=== PATIENT | female | born 1990 | race Caucasian/White ===

== ENCOUNTER → 2018-02-20 | Day surgery (SDC) | payer OTHER ==
[~2018-02-20] VITALS: Ht 165.1 cm; Wt 90.7 kg
[~2018-02-20] MED LIST: VICODIN 5-3001 EACH PO
--- NOTE | 2018-02-20 17:14 | Operative Report ---
Operative/Inv Procedure Report Surgery Date: 02/20/18 Name of Procedure: Open reduction internal fixation of right trimalleolar ankle fracture Pre-Operative Diagnosis: Displaced right trimalleolar ankle fracture Post-Operative Diagnosis: Same Estimated Blood Loss: scant Surgeon/Chemist Steroids: Camille ROTH,Kayden Anesthesia: laryngeal mask airway Implants: Synthes one third tubular 6-hole plate, interfragmentary screw fibula, partially threaded 4.0 cancellus screw medial malleolus Drains: None Specimens: None Microbiology: None Tourniquet: 76 minutes Complications: None Condition: Stable Operative Indication: Patient is a 28-year-old woman who injured her right ankle. She was diagnosed with a displaced trimalleolar ankle fracture. She was splinted and referred to our office. Our evaluation revealed severe swelling at the time of the initial visit and her x-rays revealed displaced trimalleolar ankle fracture which required surgical intervention. However, due to the swelling we needed to monitor swelling and alleviate swelling prior to proceeding with surgery since this would lead to higher risk of soft tissue complications and healing soft tissues. In follow-up, swelling had improved and therefore patient was scheduled for surgery today. Risks benefits and expectations of the surgical management of this type of fracture as well as a nonsurgical management of this fracture were discussed. Patient wished to proceed with the surgical management. Risks benefits and expectations were discussed which included but were not limited to ankle pain, stiffness, need for substance surgery, infection , anesthesia risks, injury to blood vessel or nerve Operative/Procedure Note Note: Patient was brought to the operating room and transferred to the operating table. Once under appropriate anesthesia the right lower extremity was prepped and draped in standard fashion. Preoperative IV antibiotic's were given prophylactically. Patient had moderately severe ecchymosis throughout the lower extremity. Swelling had improved even since the office visit but still had moderate diffuse swelling. No fracture blisters remained except for the very small once she had medially that were not near the anticipated incision site. The leg was elevated exsanguinated and tourniquet was inflated. Standard lateral incision was made centered over the distal fibula fracture site. Through blunt dissection the fracture was isolated. Large fracture hematoma was removed and evacuated. Copious irrigation of this followed. I then identified the fracture fragments no of the lateral malleolus and reduced this fracture. I held this place with a bone clamp. I then placed an interfragmentary screw from anterior to posterior placed as close to 90 to the fracture site as possible by over drilling the near cortex and drilling the far cortex. Measurements were taken and the appropriate length interfragmentary screw was placed. Excellent compression at the fracture site. I then removed the bone clamp. I proceeded to place a 6-hole one third tubular plate in position. 3 cortical screws were placed proximal to the fracture site and 3 cancellus screws are placed distal to the fracture site with excellent fixation. I was satisfied with the fixation of the lateral malleolus fragment piece. Copious irrigation followed and then I placed a lap sponge to cover the wound while working on the medial site. A curvilinear incision was made centered over the medial malleolus fracture site. Blunt dissection was done to isolate the neurovascular bundle and reflected and retracted anteriorly to safety while working on the fracture. There was severe comminution of the medial malleolus fracture site. There was multiple plane displacement and fragmentation. This fragmentation was so severe that only one screw could be placed within the fracture fragment distally. I initially placed a K wire to hold the fragments in place and obtained a intraoperative fluoroscopic image to confirm reduction. I was satisfied with the reduction overall. I left the bone clamp in place and remove the K wire. This was then followed by drilling with a 2.5 mm drill bit measuring and placing the appropriate length 45 mm partially-threaded 4.0 malleolar screw. I was satisfied with position of the screw. I was able to bury it into the small fragment to minimize soft tissue impingement. Intraoperative fluoroscopic images were then obtained in both AP lateral and oblique views. I was satisfied with the position of the hardware adduction of the fracture fragments and appearance of the mortise. I did stress the mortise under fluoroscopy and found the mortise to be stable. Copious irrigation of both wounds followed. I then closed the subcutaneous tissue with 2-0 Vicryl suture. Skin was closed with nylon in an interrupted fashion. Similar closure was then done of the lateral wound after copious irrigation. The 2-0 Vicryl followed by 3-0 nylon suture in interrupted fashion. Appropriate dressings were applied and patient was splinted and patient was awakened and good condition. No intraoperative complications. Blood loss was scant due to the tourniquet which was 76 minutes. Discharge Disposition: PACU
== END ==
LOC: STS 02:40
DX: S82.851A Displaced trimalleolar fracture of right lower leg, initial encounter for closed fracture (principal); W19.XXXA Unspecified fall, initial encounter
CPT/HCPCS: 36415; 81025; C1713; J0131; J0690; J2250